=== PATIENT | female | born 2000 | race Caucasian/White ===

== ENCOUNTER → 2023-05-20 | Outpatient (REF) | payer OTHER ==
[2023-05-20 11:56] LABS: BASO % 0.6 % (0.0-1.0); EOS # 0.1 10^3/uL (0.0-0.5); HEMATOCRIT 43.4 % (36.0-47.0); HEMOGLOBIN 14.2 g/dl (12.0-15.5); LYMPH # 1.9 10^3/uL (1.5-5.0); LYMPH % 27.7 % (24.0-44.0); MEAN CORPUSCULAR HGB CONC 32.7 g/dl (32.0-36.5); MEAN CORPUSCULAR VOLUME 91.6 fl (80.0-96.0); MONO # 0.4 10^3/uL (0.0-0.8); NEUTROPHILS # 4.5 10^3/uL (1.5-8.5); NEUTROPHILS % 64.4 % (36.0-66.0); PLATELET COUNT, AUTOMATED 313 10^3/uL (150-450); RED BLOOD COUNT 4.74 10^6/uL (4.00-5.40)
[2023-05-20 12:04] LABS: ERYTHROCYTE SEDIMENTATION RATE 3 mm/hr (0-20)
[2023-05-20 12:26] LABS: C REACTIVE PROTEIN QUANTITATIV < 0.40 MG/DL (<1.0); CPK CREATINE PHOSPHOKINASE 82 U/L (34-145)
[2023-05-20 12:27] LABS: LDH LACTATE DEHYDROGENASE 180 U/L (120-246)
[2023-05-20 12:28] LABS: ALBUMIN 4.5 G/DL (3.2-5.2); ALKALINE PHOSPHATASE 70 U/L (46-116); ALT/SGPT 20 U/L (7.0-40); AST/SGOT 11 U/L (<34); BILIRUBIN,TOTAL 0.4 MG/DL (0.3-1.2); BLOOD UREA NITROGEN 13 MG/DL (9-23); CALCIUM LEVEL 9.1 MG/DL (8.5-10.1); CARBON DIOXIDE LEVEL 28 MMOL/L (20-31); CHLORIDE LEVEL 107 MMOL/L (98-107); GLUCOSE, FASTING 80 MG/DL (60-100); POTASSIUM SERUM 4.5 MMOL/L (3.5-5.1); SODIUM LEVEL 139 MMOL/L (136-145); TOTAL PROTEIN 7.3 G/DL (5.7-8.2)
[2023-05-20 12:32] LABS: TOTAL 25(OH) VITAMIN D 12.4 NG/ML (20.0-100.0)
[2023-05-20 12:35] LABS: APPEARANCE, URINE CLEAR (CLEAR); BACTERIA, URINE AUTO 1+ (NEGATIVE); BILIRUBIN, URINE AUTO NEGATIVE (NEGATIVE); BLOOD, URINE BLOOD NEGATIVE (NEGATIVE); COLOR, URINE YELLOW (YELLOW); GLUCOSE, URINE (UA) AUTO NEGATIVE (NEGATIVE); KETONE, URINE AUTO NEGATIVE (NEGATIVE); LEUKOCYTE ESTERASE, URINE AUTO NEGATIVE (NEGATIVE); MUCUS, URINE SMALL (NEGATIVE); NITRITE, URINE AUTO NEGATIVE (NEGATIVE); PROTEIN, URINE AUTO NEGATIVE (NEGATIVE); RBC, URINE AUTO 1 /HPF (0-3); SQUAMOUS EPITHELIAL CELL UR AU 3 /HPF (0-6); UROBILINOGEN, URINE AUTO 0.2 mg/dL (0.0-2.0); WBC, URINE AUTO 2 /HPF (0-3)
[2023-05-20 13:05] LABS: HEPATITIS C VIRUS ABY INDEX < 0.02 INDEX (<0.8)
[2023-05-20 13:06] LABS: HEPATITIS B CORE ANTIBODY IGM NEGATIVE (NEGATIVE)
[2023-05-20 13:13] LABS: CREATININE,RANDOM URINE 103.5 MG/DL
[2023-05-20 13:15] LABS: TOTAL PROTEIN,RANDOM URINE < 6.0 MG/DL (0.0-14.0)
[2023-05-20 13:20] LABS: COMPLEMENT C3 148.4 MG/DL (82.0-160.0); COMPLEMENT C4 26.2 MG/DL (12-36)
== END ==
LOC: M SFHCRHEU 09:29
PROVIDERS: ATTEND Internal Medicine Rheumatology
DX: R76.8 Other specified abnormal immunological findings in serum (principal); M25.50 Pain in unspecified joint; R21 Rash and other nonspecific skin eruption; M54.9 Dorsalgia, unspecified; R11.0 Nausea